=== PATIENT | male | born 2000 | race Hispanic/Latino ===

== ENCOUNTER 2019-02-05 21:51 | Emergency (ER) | payer MEDICAID, OTHER ==
[2019-02-05 23:01] LABS: RAPID GROUP A STREP POSITIVE (NEGATIVE)
[2019-02-05] MEDS ORDERED: KETOROLAC TROMETHAMINE 60 MG/2 ML VIAL ONE (23:12)
[2019-02-05] MEDS ORDERED: CEFTRIAXONE SODIUM 1 GM ONE (23:12)
[2019-02-05] MEDS ORDERED: LIDOCAINE HCL-MPF 1% 2ML VIAL ONE (23:12)
== END 2019-02-05 23:38 | disposition home or self-care (01) ==
LOC: EDH 21:51
DX: J02.0 Streptococcal pharyngitis (principal); Z72.0 Tobacco use
CPT/HCPCS: 87804 ×2; 87880; 96372 ×2; 99284; J0696; J1885; J3490